=== PATIENT | male | born 1990 | race Two or more races ===

== ENCOUNTER 2020-01-29 20:06 | Emergency (ER) | payer SELFPAY ==
[~2020-01-29] VITALS: Ht 170.2 cm; Wt 86.2 kg
[2020-01-29 20:07] VITALS: BP 134/87
[2020-01-29 20:10] VITALS: BP 134/87
--- NOTE | 2020-01-29 22:09 | Emergency Room Report ---
History of Present Illness General Chief Complaint: Alcohol Intoxication Source: Patient Present Illness Allergies: Coded Allergies: No Known Allergies (Unverified , 01/29/20) COVID-19 Screening Contact w/high risk pt: No Experienced COVID-19 symptoms?: No COVID-19 Testing performed [employer]: No Physical Exam Vital Signs Date Time Temp Pulse Resp B/P (MAP) Pulse Ox O2 Delivery O2 Flow Rate FiO2 01/29/20 20:06 98.4 109 16 134/87 (103) 98 Room Air Medical Decision Making Diagnostic Impression: Primary Impression: Patient left without being seen Additional Impression: Acute alcoholic intoxication ER Course Patient left from ambulance bay from the ambulance stretcher and left the emergency room without being evaluated Last Vital Signs Date Time Temp Pulse Resp B/P (MAP) Pulse Ox O2 Delivery O2 Flow Rate FiO2 01/29/20 20:10 98.4 109 16 134/87 98 Room Air Status: unchanged Disposition: LEFT W/OUT BEING SEEN Condition: Stable Referrals: NOT CHOSEN IPA/,REFERRING (PCP) Renaldo Osborne MD Jan 29, 2020 22:09
== END 2020-01-29 20:10 | disposition left against medical advice (07) ==
LOC: EDBD 20:06 → EMR 20:09
DX: F10.129 Alcohol abuse with intoxication, unspecified (principal); Z53.21 Procedure and treatment not carried out due to patient leaving prior to being seen by health care provider